=== PATIENT | female | born 1995 | race Caucasian/White ===

== ENCOUNTER 2020-07-14 19:14 | Emergency (ER) | payer OTHER ==
[~2020-07-14] VITALS: Ht 154.9 cm; Wt 5.0 kg
[2020-07-14] MEDS ORDERED: LORAZEPAM 1MG TABLET PO ONE (20:30)
[2020-07-14 20:37] LABS: CLARITY URINE CLOUDY (CLEAR); COLOR URINE YELLOW (YELLOW); KETONES URINE NEGATIVE (NEGATIVE); LEUKOCYTE ESTERASE URINE NEGATIVE (NEGATIVE); NITRITE URINE NEGATIVE (NEGATIVE); OCCULT BLOOD URINE NEGATIVE (NEGATIVE); PROTEIN URINE NEGATIVE (NEGATIVE); SPECIFIC GRAVITY URINE 1.018 (1.005-1.030)
[2020-07-14 21:30] LABS: CHLORIDE 108 mEq/L (98-107)
[2020-07-14 21:35] LABS: BASOPHILS % 0.9 % (0.0-2.0); EOSINOPHILS % 2.9 % (0.0-5.0); HEMATOCRIT. 37.7 % (36.0-48.0); HEMOGLOBIN. 11.9 g/dL (12.0-16.0); LYMPHOCYTES % 29.3 % (20.0-50.0); MEAN CORPUSCULAR HEMOGLOBIN 22.1 pg (28.0-32.0); MEAN CORPUSCULAR VOLUME 70.1 fL (81.0-99.0); MONOCYTES % 5.7 % (2.0-8.0); NEUTROPHILS % 61.2 % (40.0-76.0); PLATELET 213 x1000/uL (130-400); RED BLOOD CELL COUNT 5.38 mill/uL (4.2-5.4); RED CELL DISTRIBUTION WIDTH 17.6 % (11.6-14.6)
[2020-07-14 21:53] LABS: HCG SCREEN NEGATIVE
[2020-07-14 22:25] VITALS: BP 104/67
== END 2020-07-14 22:27 | disposition home or self-care (01) ==
LOC: ER 19:14
DX: N20.0 Calculus of kidney (principal); R03.0 Elevated blood-pressure reading, without diagnosis of hypertension
CPT/HCPCS: 36415; 74176; 80053; 81003; 81025; 83690; 84703; 85025; 87086; 93005; 99285; Z7610

== ENCOUNTER 2021-03-15 12:37 | Emergency (ER) | payer OTHER, MEDICAID ==
[~2021-03-15] VITALS: Ht 154.9 cm; Wt 58.0 kg
[2021-03-15] MEDS ORDERED: IBUPROFEN 600MG TABLET PO NR (15:25)
[2021-03-15 15:44] VITALS: BP 117/68
[2021-03-15] MEDS ORDERED: NAPR-681 PO (16:45)
== END 2021-03-15 16:58 | disposition home or self-care (01) ==
LOC: ER 12:37
DX: M71.22 Synovial cyst of popliteal space [Baker], left knee (principal)
CPT/HCPCS: 93971; 99284

== ENCOUNTER 2021-04-20 14:48 | Emergency (ER) | payer MEDICAID, OTHER ==
[~2021-04-20] VITALS: Ht 160 cm; Wt 65.0 kg
[~2021-04-20 14:48] MED LIST: NAPR-681 PO
[2021-04-20 15:01] VITALS: BP 141/88
== END 2021-04-20 15:11 | disposition home or self-care (01) ==
LOC: ER 14:48
DX: H92.02 Otalgia, left ear (principal)
CPT/HCPCS: 99281

== ENCOUNTER 2024-05-19 17:46 | Emergency (ER) | payer MEDICAID, OTHER ==
[~2024-05-19] VITALS: Ht 157.5 cm; Wt 54.0 kg
[2024-05-19 17:48] VITALS: TEMP 98.4; O2SAT 99
[2024-05-19 18:26] LABS: BASOPHILS % 0.8 % (0.0-2.0); DIFFERENTIAL COMMENT 0; EOSINOPHILS % 4.9 % (0.0-5.0); HEMATOCRIT. 35.4 % (36.0-48.0); HEMOGLOBIN. 10.7 g/dL (12.0-16.0); LYMPHOCYTES % 29.2 % (20.0-50.0); MEAN CORPUSCULAR HEMOGLOBIN 23.1 pg (28.0-32.0); MEAN CORPUSCULAR HGB CONC 30.4 g/dL (31.0-37.0); MEAN CORPUSCULAR VOLUME 75.9 fL (81.0-99.0); MEAN PLATELET VOLUME 9.7 fl (7.4-10.4); MONOCYTES % 9.4 % (2.0-8.0); NEUTROPHILS % 55.7 % (40.0-76.0); PLATELET 210 x1000/uL (130-400); RED BLOOD CELL COUNT 4.66 mill/uL (4.2-5.4); RED CELL DISTRIBUTION WIDTH 18.9 % (11.6-14.6); WHITE BLOOD COUNT 6.8 x1000/uL (4.5-11.0)
[2024-05-19] MEDS: LEVETIRACETAM 500MG PREMIX 100 ML IV ONE (18:32)
[2024-05-19] MEDS: SODIUM CHLORIDE 0.9% 1,000 ML IV ONE (18:32)
[2024-05-19 18:38] LABS: CARBON DIOXIDE 21 mEq/L (21-32); CHLORIDE 109 mEq/L (98-107); POTASSIUM 4.1 mEq/L (3.5-5.1); SODIUM 139 mEq/L (136-145)
[2024-05-19 18:39] LABS: CALCIUM 9.2 mg/dL (8.7-10.4)
[2024-05-19 18:41] LABS: HCG SCREEN NEGATIVE
[2024-05-19 18:44] LABS: CREATININE 0.7 mg/dL (0.6-1.0); GLUCOSE 82 mg/dL (70-105)
[2024-05-19 18:46] LABS: ACETAMINOPHEN < 2 ug/mL (10-30)
[2024-05-19] MEDS: ACETAMINOPHEN 325MG TABLET PO ONE (18:48)
[2024-05-19 19:09] LABS: ETHANOL BLOOD < 10 mg/dL (<10); UREA NITROGEN BLOOD < 5 mg/dL (9-23)
[2024-05-19 20:34] VITALS: BP 109/73; PULSE 130; RESP 18
[2024-05-19] MEDS: KETOROLAC 15MG/ML VIAL IV ONE (20:34)
== END 2024-05-19 20:39 | disposition home or self-care (01) ==
LOC: ER 17:46
DX: R56.9 Unspecified convulsions (principal); F41.9 Anxiety disorder, unspecified; F32.A Depression, unspecified
CPT/HCPCS: 80048; 80307; 80329; 80320; 84703; 84443; 85025; 36415; 70450; 93005; 96365; 99285; J1953; J1885; J7030; Z7610 ×4; 96361; 96374; G0480

== ENCOUNTER 2024-05-20 11:12 | Emergency (ER) | payer MEDICAID ==
[~2024-05-20] VITALS: Ht 152.4 cm; Wt 63.5 kg
[2024-05-20 11:25] VITALS: O2SAT 97
[2024-05-20] MEDS: METOCLOPRAMIDE HCL 10MG TABLET PO ONE (13:47)
[2024-05-20] MEDS: ACETAMINOPHEN 325MG TABLET PO STA (13:47)
[2024-05-20] MEDS: KETOROLAC 30MG/ML VIAL IM STA (16:11)
[2024-05-20 16:48] VITALS: BP 141/96; PULSE 98; RESP 16; TEMP 36.94740; O2SAT 97
== END 2024-05-20 16:55 | disposition home or self-care (01) ==
LOC: ER 11:12
DX: S00.93XA Contusion of unspecified part of head, initial encounter (principal); F32.A Depression, unspecified; F41.9 Anxiety disorder, unspecified; W18.30XA Fall on same level, unspecified, initial encounter; Y93.89 Activity, other specified; Y92.89 Other specified places as the place of occurrence of the external cause; Y99.8 Other external cause status
CPT/HCPCS: 81025; 70450; 96372; 99285; J8597; J1885; Z7610

== ENCOUNTER 2024-07-14 12:05 | Emergency (ER) | payer MEDICAID ==
[~2024-07-14] VITALS: Ht 162.6 cm; Wt 55.0 kg
[2024-07-14 12:07] VITALS: O2SAT 99
[2024-07-14] MEDS: ONDANSETRON HCL 4MG/2ML INJ IV STA (12:12)
[2024-07-14] MEDS: SODIUM CHLORIDE 0.9% 1,000 ML IV ONE (12:15)
[2024-07-14] MEDS: FAMOTIDINE 20MG/2ML VIAL IV ONE (12:15)
[2024-07-14] MEDS: METOCLOPRAMIDE HCL 10MG/2ML VIAL IV ONE (13:24)
[2024-07-14 15:22] LABS: BASOPHILS % 0.9 % (0.0-2.0); DIFFERENTIAL COMMENT 0; EOSINOPHILS % 1.5 % (0.0-5.0); HEMATOCRIT. 35.9 % (36.0-48.0); HEMOGLOBIN. 11.2 g/dL (12.0-16.0); LYMPHOCYTES % 25.9 % (20.0-50.0); MEAN CORPUSCULAR HEMOGLOBIN 22.6 pg (28.0-32.0); MEAN CORPUSCULAR HGB CONC 31.1 g/dL (31.0-37.0); MEAN CORPUSCULAR VOLUME 72.7 fL (81.0-99.0); MEAN PLATELET VOLUME 10.4 fl (7.4-10.4); MONOCYTES % 4.7 % (2.0-8.0); PLATELET 235 x1000/uL (130-400); RED BLOOD CELL COUNT 4.94 mill/uL (4.2-5.4); RED CELL DISTRIBUTION WIDTH 17.4 % (11.6-14.6)
[2024-07-14 15:26] LABS: CHLORIDE 108 mEq/L (98-107); POTASSIUM 3.9 mEq/L (3.5-5.1); SODIUM 140 mEq/L (136-145)
[2024-07-14 15:27] LABS: CALCIUM 9.5 mg/dL (8.7-10.4); CARBON DIOXIDE 23 mEq/L (21-32)
[2024-07-14 15:29] LABS: PROTHROMBIN TIME 10.9 sec (9.6-11.0)
[2024-07-14 15:32] LABS: CREATININE 0.6 mg/dL (0.6-1.0); GLUCOSE 118 mg/dL (70-105); UREA NITROGEN BLOOD 6 mg/dL (9-23)
[2024-07-14 15:34] LABS: ACETAMINOPHEN < 2 ug/mL (10-30); ALANINE AMINOTRANSFERASE 13 IU/L (10-49); ALBUMIN 4.4 g/dL (3.2-4.8); ASPARTATE AMINOTRANSFERASE 18 IU/L (<34); BILIRUBIN DIRECT 0.3 mg/dL (<=3.0); BILIRUBIN TOTAL 0.9 mg/dL (0.1-1.0); PROTEIN TOTAL 7.7 g/dL (6.0-8.3)
[2024-07-14 15:40] LABS: ETHANOL BLOOD < 10 mg/dL (<10)
[2024-07-15] MEDS: DIPHENHYDRAMINE 50MG CAPSULE PO ONE (00:15)
[2024-07-15] MEDS: METOCLOPRAMIDE HCL 10MG TABLET PO ONE (00:15)
[2024-07-15] MEDS: DIPHENHYDRAMINE 25MG CAPSULE PO NR (01:15)
[2024-07-15 11:52] LABS: CLARITY URINE CLEAR (CLEAR); COLOR URINE YELLOW (YELLOW); GLUCOSE URINE NEGATIVE (NEGATIVE); KETONES URINE 4+ (NEGATIVE); LEUKOCYTE ESTERASE URINE 1+ (NEGATIVE); NITRITE URINE NEGATIVE (NEGATIVE); OCCULT BLOOD URINE NEGATIVE (NEGATIVE); PROTEIN URINE NEGATIVE (NEGATIVE); SPECIFIC GRAVITY URINE 1.022 (1.005-1.030)
[2024-07-15 12:11] LABS: BACTERIA URINE 3+; RBC URINE 0-2 /hpf (0-2); SQUAMOUS EPITHELIAL CELL URINE 1+ /lpf (RARE/1+); YEAST URINE NONE SEEN
[2024-07-15 12:39] LABS: *AMPHETAMINES SCREEN URINE NEGATIVE (NEGATIVE); *BARBITURATES SCREEN URINE NEGATIVE (NEGATIVE); *BENZODIAZEPINES SCREEN URINE NEGATIVE (NEGATIVE); *COCAINE SCREEN URINE NEGATIVE (NEGATIVE); CANNABINOID URINE SCREEN NEGATIVE (NEGATIVE); ECSTASY MDMA SCREEN URINE NEGATIVE (NEGATIVE); METHADONE URINE SCREEN NEGATIVE (NEGATIVE); OPIATES URINE SCREEN NEGATIVE (NEGATIVE); PHENCYCLIDINE URINE SCREEN NEGATIVE (NEGATIVE)
[2024-07-15 14:41] LABS: HCG SCREEN NEGATIVE
[2024-07-16] MEDS: NITROFURANTOIN 100MG M/M CAPSULE PO SCH (22:29)
[2024-07-16] MEDS: QUETIAPINE FUMARATE 50MG TABLET PO SCH (22:29)
[2024-07-18 14:23] VITALS: BP 133/68; PULSE 80; RESP 16; TEMP 36.7; O2SAT 99
== END 2024-07-18 14:24 | disposition home or self-care (01) ==
LOC: ER 12:05
DX: T42.4X2A Poisoning by benzodiazepines, intentional self-harm, initial encounter (principal); F41.9 Anxiety disorder, unspecified; F31.9 Bipolar disorder, unspecified; Z79.899 Other long term (current) drug therapy; Z20.822 Contact with and (suspected) exposure to COVID-19; X58.XXXA Exposure to other specified factors, initial encounter; Y93.89 Activity, other specified; Y92.89 Other specified places as the place of occurrence of the external cause; Y99.8 Other external cause status
CPT/HCPCS: 80076; 80305; 80048; 81003; 80307; 80329; 80320; 84703; 83690; 85025; 85610; 36415; 93005; 99285; 87426; J2765; J7030; Z7610 ×4; Q0163 ×2; J8597; A4606; G0480

== ENCOUNTER 2025-04-15 16:32 | Emergency (ER) | payer MEDICAID ==
[~2025-04-15] VITALS: Ht 162.6 cm; Wt 70.0 kg
[2025-04-15 16:33] VITALS: O2SAT 98
[2025-04-15 17:26] LABS: BASOPHILS % 1.0 % (0.0-2.0); EOSINOPHILS % 4.7 % (0.0-5.0); HEMATOCRIT. 35.4 % (36.0-48.0); HEMOGLOBIN. 11.1 g/dL (12.0-16.0); LYMPHOCYTES % 28.2 % (20.0-50.0); MEAN PLATELET VOLUME 10.5 fl (7.4-10.4); MONOCYTES % 5.9 % (2.0-8.0); NEUTROPHILS % 60.2 % (40.0-76.0); PLATELET 251 x1000/uL (130-400); RED BLOOD CELL COUNT 4.46 mill/uL (4.2-5.4); RED CELL DISTRIBUTION WIDTH 16.1 % (11.6-14.6)
[2025-04-15 17:38] LABS: HCG SCREEN NEGATIVE
[2025-04-15 18:02] LABS: CREATININE 0.6 mg/dL (0.6-1.0); UREA NITROGEN BLOOD 5 mg/dL (9-23)
[2025-04-15 18:03] LABS: TROPONIN I HIGH SENSITIVITY < 4 ng/L (3.0-34)
[2025-04-15 18:04] LABS: ASPARTATE AMINOTRANSFERASE 53 IU/L (<34); BILIRUBIN DIRECT < 0.1 mg/dL (<=3.0); BILIRUBIN TOTAL 0.2 mg/dL (0.1-1.0); PROTEIN TOTAL 6.9 g/dL (6.0-8.3)
[2025-04-15] MEDS: METOCLOPRAMIDE HCL 10MG/2ML VIAL IV ONE (19:30)
[2025-04-15] MEDS: SODIUM CHLORIDE 0.9% 1,000 ML IV ONE (19:30)
[2025-04-15 19:50] VITALS: BP 109/65; PULSE 89; RESP 15; TEMP 37.1; O2SAT 98
== END 2025-04-15 19:55 | disposition home or self-care (01) ==
LOC: ER 16:32
DX: R55 Syncope and collapse (principal); R51.9 Headache, unspecified; R06.02 Shortness of breath; F31.9 Bipolar disorder, unspecified; F41.9 Anxiety disorder, unspecified; Z79.899 Other long term (current) drug therapy
CPT/HCPCS: 99285; 70450; 71045; 80076; 80048; 84703; 83880; 83735; 85025; 84484; 36415; 93005; J7030